=== PATIENT | male | born 1970 | race Caucasian/White ===

== ENCOUNTER → 2017-01-12 | Outpatient (CLI) | payer MEDICARE, OTHER ==
[~2017-01-12] MED LIST: ANTIVERT PO; ATIVAN PO; ATIVAN0.5 M1 PO; AVAPRO PO; BENICAR HCT 20-1 TA1 PO; BUMEX1 MG PO; BUPROPION HCL150 M1 PO; CITALOPRAM HBR40 MG PO; CRESTOR PO; DOXYCYCLINE PO; FENOFIBRIC ACI135 MG PO; FLEXERIL10 MG PO; FLOMAX0.4 M1 PO; LORTAB 10-5001 EACH PO; LOTREL 5/20 MG1 CAP PO; METOPROLOL SUCC50 MG PO; NAPROSYN500 MG PO; NORVASC PO; OMEGA-3 ACID ETH1 GM PO; PERCOCET5/325 PO; PHENERGAN PO; PHENERGAN25 MG PO; POTASSIUM CHLO10 ME1 PO; PREDNISONE PO; SEROQUEL PO; TRICOR PO; VALSARTAN-HCTZ1 EAC2 PO; VISTARIL50 MG PO; WELLBUTRIN PO; WELLBUTRIN SR PO; ZONEGRAN100 M1 PO
== END | disposition home or self-care (01) ==
LOC: CLAB 07:44
DX: R89.1 Abnormal level of hormones in specimens from other organs, systems and tissues (principal)
CPT/HCPCS: 36415; 84403

== ENCOUNTER → 2017-01-17 | Outpatient (CLI) | payer MEDICARE, OTHER ==
[2017-01-17 09:41] LABS: TESTOSTERONE TOTAL 578.9 ng/dL (17-781)
[2017-01-17 09:47] LABS: PROSTATE SPECIFIC AG SCR 0.71 ng/ml (0.0-4.0)
== END | disposition home or self-care (01) ==
LOC: CLAB 08:15
PROVIDERS: Urology
DX: R89.1 Abnormal level of hormones in specimens from other organs, systems and tissues (principal)
CPT/HCPCS: 84403; G0103

== ENCOUNTER 2017-01-21 23:56 | Emergency (ER) | payer MEDICARE, OTHER ==
--- NOTE | ~2017-01-21 | CT4 ---
[facility] RADIOLOGY TEXT RESULTS PATIENT: HUSEYIN AMADOR LOCATION: [facility] : 66 UNIT #: [id number] AGE: [address]: John Nunes MD SEX: M ORDER DR: [id number] [facility] [address] [place], [place] [address] [id number] MR#: [id number] Acc #: [id number] NAME: HUSEYIN AMADOR. : 1970 SEX: M STUDY DATE/TIME: 01/22/2017 0:03 UNIT: [facility] ROOM: STUDY DESCRIPTION: CT Abd and Pelv Wo Cont Attending Physician: John Nunes M.D. Ordering Physician: John Nunes M.D. Primary Care Physician: Kristofer Romero M.D. MEDICAL IMAGING REPORT This report is preliminary unless electronic signature is present EXAM CT abdomen and pelvis without contrast INDICATIONS Right flank pain since this afternoon. History of kidney stones. COMPARISON 06/08/2009. TECHNIQUE This CT exam was performed with one or more of the following radiation dose reduction techniques: automatic exposure control, adjustment of mA and/or kV according to patient size, and iterative reconstruction. Axial 3 mm images were obtained through the abdomen and pelvis without IV or oral contrast. FINDINGS The lung bases are clear. The liver, gallbladder, spleen, pancreas, adrenal glands and aorta are normal. There is left. Has a nonobstructing 2 mm stone. The right kidney has a nonobstructing 2 mm stone. There is no hydronephrosis. No ureteral stones are identified. The aorta is normal in size. There is no adenopathy. The bowel including the appendix appears normal. The bladder is normal. The prostate gland is normal. The bones are unremarkable. IMPRESSION 1. There is a tiny nonobstructing stone each kidney, but there is no hydronephrosis and no ureteral stones are identified. 2. Normal appendix. 3. Otherwise normal. [facility] RADIOLOGY TEXT RESULTS PATIENT: HUSEYIN AMADOR LOCATION: [facility] : 66 UNIT #: [id number] AGE: [address]: John Nunes MD SEX: M ORDER DR: Dictated by... Brad Orourke M.D. THIS IS AN ELECTRONICALLY VERIFIED REPORT Brad Orourke M.D. at 01/22/2017 10:01 PM ERIC/conrado TD: 01/22/2017 21:37 JOB #: [id number] MEDICAL IMAGING REPORT Page 1 of 1 COPY
[2017-01-22 00:43] LABS: URINE SOURCE CLEAN CATCH
[2017-01-22 00:46] LABS: BASOPHIL# 0.1 X10e3 (0-0.3); BASOPHIL% 1.2 % (0-2.5); EOSINOPHIL# 0.2 X10e3 (0-0.7); EOSINOPHIL% 3.3 % (0.0-7.0); HEMATOCRIT 44.5 % (38.0-50.0); HEMOGLOBIN 14.2 gm/dL (13.0-16.0); LYMPHOCYTE# 1.9 X10e3 (1.0-3.5); LYMPHOCYTE% 26.3 % (17.0-45.0); MEAN CELL VOLUME 95.3 FL (83-96); MEAN CORPUSCULAR HEMOGLOBIN 30.5 PG (28-34); MEAN PLATELET VOLUME 8.8 FL (6.5-11.5); MONOCYTE# 0.4 X10e3 (0-1.0); MONOCYTE% 6.3 % (3.0-12.0); NEUTROPHIL# 4.4 X10e3 (1.5-7.1); NEUTROPHIL% 62.9 % (40-75); PLATELET COUNT 232 X10e3 (140-420); RED BLOOD COUNT 4.67 X10e (3.90-5.60); RED CELL DISTRIBUTION WIDTH 13.5 % (11.0-15.5)
[2017-01-22 00:47] LABS: DIFF IND NO; URINE APPEARANCE CLEAR; URINE BILIRUBIN NEG (NEG); URINE BLOOD NEG (NEG); URINE COLOR YELLOW; URINE GLUCOSE NEG (NEG); URINE KETONE NEG (NEG); URINE LEUKOCYTE ESTERASE NEG (NEG); URINE NITRATE NEG (NEG); URINE PROTEIN NEG (NEG); URINE SPECIFIC GRAVITY 1.014 (1.003-1.035)
[2017-01-22 00:59] LABS: CULTURE INDICATED? NO
[2017-01-22 01:33] LABS: ALBUMIN SERUM 3.7 g/dL (3.5-5.0); BILIRUBIN, DIRECT 0.1 mg/dL (0.0-0.2); BILIRUBIN,INDIRECT 0.1 mg/dL (0.0-0.9); BILIRUBIN,TOTAL 0.2 mg/dL (0.2-2.0); BUN/CREATININE RATIO 21.42; CALCIUM SERUM 8.8 mg/dL (8.4-10.2); CREATININE SERUM 0.7 mg/dL (0.6-1.4); GLOM FILT RATE Estimated 111.6 mL/min (>60); POTASSIUM 3.4 mmol/L (3.5-5.1); PROTEIN TOTAL SERUM 6.7 g/dL (6.0-8.3)
== END 2017-01-22 01:55 | disposition home or self-care (01) ==
LOC: CED 23:56
PROVIDERS: Emergency Medicine
DX: R10.9 Unspecified abdominal pain (principal); I10 Essential (primary) hypertension; E78.5 Hyperlipidemia, unspecified; Z87.442 Personal history of urinary calculi
CPT/HCPCS: 36415; 74176; 80048; 80076; 81003; 85025; 96374; 99284; J3010

== ENCOUNTER 2017-02-23 22:53 | Emergency (ER) | payer MEDICARE, OTHER | END 2017-02-24 05:24 | disposition home or self-care (01) | LOC: CED 22:53 | DX: T78.3XXA Angioneurotic edema, initial encounter (principal); I10 Essential (primary) hypertension; E78.5 Hyperlipidemia, unspecified; F32.9 Major depressive disorder, single episode, unspecified | CPT/HCPCS: 96374; 96375; 99283; J1200; J2930 ==

== ENCOUNTER → 2017-03-11 | Outpatient (CLI) | payer MEDICARE, OTHER | END | disposition home or self-care (01) | LOC: CLAB 09:29 | DX: E29.1 Testicular hypofunction (principal) | CPT/HCPCS: 36415; 84403 ==

== ENCOUNTER → 2017-03-19 | Outpatient (CLI) | payer MEDICARE, OTHER | END | disposition home or self-care (01) | LOC: CLAB 10:11 | DX: E29.1 Testicular hypofunction (principal) | CPT/HCPCS: 36415; 84403 ==